=== PATIENT | female | born 1955 | race Caucasian/White ===

== ENCOUNTER 2025-08-15 12:49 | Outpatient (CLI) | payer MEDICARE | END 2025-08-15 12:50 | disposition home or self-care (01) | LOC: SCSBT 12:49 | PROVIDERS: ATTEND Physician Assistant | DX: Z13.820 Encounter for screening for osteoporosis (principal); Z78.0 Asymptomatic menopausal state; M85.851 Other specified disorders of bone density and structure, right thigh; M85.852 Other specified disorders of bone density and structure, left thigh | CPT/HCPCS: 77080 ==